=== PATIENT | female | born 1970 | race Caucasian/White ===

== ENCOUNTER 2023-11-16 13:40 | Inpatient (IN) | payer MEDICAID ==
[~2023-11-16] VITALS: Ht 157.5 cm; Wt 55.8 kg
[~2023-11-16 13:40] MED LIST: BUSP5TAB20 PO
[2023-11-16] MEDS ORDERED: ChlorproMAZINE HCL 50 MG TABLET PO PRN (16:15)
[2023-11-16] MEDS ORDERED: DiphenhydrAMINE HCL 25 MG CAPSULE PO PRN (16:15)
[2023-11-16] MEDS ORDERED: MELATONIN 5 MG TABLET PO PRN (16:15)
[2023-11-16 16:41] VITALS: BP 101/81; PULSE 80; RESP 18
[2023-11-16 17:07] LABS: GLUCOMETER DEV NAME(LOC) POC.BV; POC SARS-COV2 AG, FIA NEGATIVE (NEGATIVE)
[2023-11-16 18:15] VITALS: BP 123/85; PULSE 75; RESP 18; TEMP 97.5; O2SAT 98
[2023-11-16] MEDS ORDERED: PNEUMOCOCCAL VACCINE POLYVALENT 0.5 ML SYRINGE [PPSV23] IM. ONE (18:30)
[2023-11-16] MEDS ORDERED: INFLUENZA VIRUS VACCINE QVS 2023-24 (6MO+)/PF 60 MCG/0.5 ML SYRINGE IM. ONE (18:30)
[2023-11-16] MEDS: BENZOCAINE/MENTHOL LOZENGE PO PRN (19:36)
[2023-11-16] MEDS: ALBUTEROL SULFATE HFA 90 MCG/PUFF 8 GM INHALER IH PRN (20:17)
[2023-11-16] MEDS: GABAPENTIN 100 MG CAPSULE PO SCH (21:14)
[2023-11-16] MEDS: FluvoxaMINE MALEATE 50 MG TABLET PO SCH (21:14)
[2023-11-16 21:34] VITALS: BP 119/74; PULSE 18; RESP 18; TEMP 97.6; O2SAT 97
[2023-11-16] MEDS: BusPIRone HCL 10 MG TABLET PO SCH (22:07)
[2023-11-16] MEDS: ZOLPIDEM TARTRATE 5 MG TABLET PO PRN (22:40)
[2023-11-17] MEDS: LORazepam 0.5 MG TABLET PO PRN ×2 (01:09→12:53)
[2023-11-17 02:05] VITALS: BP 118/84; PULSE 77; RESP 16; TEMP 97.6; O2SAT 98
[2023-11-17] MEDS: ALBUTEROL SULFATE HFA 90 MCG/PUFF 8 GM INHALER IH PRN ×4 (04:00→22:59)
[2023-11-17 08:48] VITALS: BP 111/72; PULSE 87; RESP 17; TEMP 97; O2SAT 98
[2023-11-17] MEDS: GABAPENTIN 100 MG CAPSULE PO SCH ×3 (09:54→16:27)
[2023-11-17] MEDS: BusPIRone HCL 10 MG TABLET PO SCH ×3 (09:54→16:27)
[2023-11-17] MEDS: AMOX TR/POT CLAV 875 MG/125 MG TABLET PO SCH (19:34)
[2023-11-17] MEDS: PANTOPRAZOLE SODIUM 40 MG DR TABLET PO SCH (20:01)
[2023-11-17] MEDS: FluvoxaMINE MALEATE 50 MG TABLET PO SCH (20:12)
[2023-11-17 20:42] VITALS: BP 95/56; PULSE 87; RESP 20; TEMP 98.6; O2SAT 100
[2023-11-17] MEDS: BENZOCAINE/MENTHOL LOZENGE PO PRN (23:12)
[2023-11-18] MEDS: LORazepam 0.5 MG TABLET PO PRN ×3 (01:46→23:49)
[2023-11-18 08:10] LABS: BASOPHILS % (AUTO) 1.1 % (0.0-2.0); EOSINOPHILS % (AUTO) 4.2 % (1.0-6.0); HEMATOCRIT 41.5 % (36-46); HEMOGLOBIN 14.2 g/dL (12.0-16.0); LYMPHOCYTES # (AUTO) 1.4 K/uL (1.0-4.8); LYMPHOCYTES % (AUTO) 24.3 % (22.0-44.0); MEAN CORPUSCULAR HEMOGLOBIN 30.9 pg (26.0-34.0); MEAN CORPUSCULAR HGB CONC 34.2 G/dL (31.0-37.0); MEAN CORPUSCULAR VOLUME 90 fL (80-100); MONOCYTES # (AUTO) 0.5 K/uL (0.1-1.0); MONOCYTES % (AUTO) 9.4 % (2.0-9.0); NEUTROPHILS # (AUTO) 3.5 K/uL (1.8-7.7); PLATELET COUNT (AUTO) 316 K/uL (150-450); RED CELL DISTRIBUTION WIDTH 14.2 % (11.5-14.5); WHITE BLOOD COUNT (AUTO) 5.7 K/uL (4.5-11.0)
[2023-11-18 08:17] LABS: HEMOGLOBIN A1C 5.5 % (3.8-5.6)
[2023-11-18 08:39] LABS: ANION GAP 6 mmol/L (8-16); CALCIUM, TOTAL 9.3 mg/dL (8.8-10.5); CARBON DIOXIDE 33 mmol/L (22-29); CHLORIDE 101 mmol/L (98-107); CHOL/HDL RATIO 2.3 (3.9-5.7); CHOLESTEROL 164 mg/dL (131-200); FREE T4 (FREE THYROXINE) 1.14 ng/dL (0.76-1.46); GLOMERULAR FILTR. RATE CALC > 60 mL/min (>60); GLUCOSE,RANDOM 80 mg/dL (70-110); HDL CHOLESTEROL 72 mg/dL (40-60); LDL CHOL (CALC.) 74 mg/dL (0-130); SODIUM SERUM 140 mmol/L (136-145); THYROID STIMULATING HORMONE 0.88 uIU/mL (0.36-3.74); TRIGLYCERIDES 92 mg/dL (15-150); UREA NITROGEN, BLOOD 13 mg/dL (7-18)
[2023-11-18] MEDS: PANTOPRAZOLE SODIUM 40 MG DR TABLET PO SCH (09:29)
[2023-11-18] MEDS: ARIPiprazole 5 MG TABLET PO SCH (09:29)
[2023-11-18] MEDS: AMOX TR/POT CLAV 875 MG/125 MG TABLET PO SCH ×2 (09:29→16:54)
[2023-11-18] MEDS: BusPIRone HCL 10 MG TABLET PO SCH ×3 (09:30→16:54)
[2023-11-18 09:42] VITALS: BP 113/53; PULSE 65; RESP 16; TEMP 97.9; O2SAT 96
[2023-11-18] MEDS: BENZOCAINE/MENTHOL LOZENGE PO PRN ×2 (11:22→18:05)
[2023-11-18] MEDS: ALBUTEROL SULFATE HFA 90 MCG/PUFF 8 GM INHALER IH PRN ×2 (12:46→19:19)
[2023-11-18 15:04] VITALS: BP 106/80
[2023-11-18 20:16] VITALS: BP 113/77; PULSE 92; RESP 17; TEMP 97.8; O2SAT 97
[2023-11-18] MEDS: FluvoxaMINE MALEATE 50 MG TABLET PO SCH (20:18)
[2023-11-19] MEDS: ALBUTEROL SULFATE HFA 90 MCG/PUFF 8 GM INHALER IH PRN ×3 (03:21→19:57)
[2023-11-19] MEDS: AMOX TR/POT CLAV 875 MG/125 MG TABLET PO SCH ×2 (08:31→16:17)
[2023-11-19] MEDS: PANTOPRAZOLE SODIUM 40 MG DR TABLET PO SCH (08:31)
[2023-11-19] MEDS: ARIPiprazole 5 MG TABLET PO SCH (08:31)
[2023-11-19] MEDS: BusPIRone HCL 10 MG TABLET PO SCH ×3 (08:31→16:17)
[2023-11-19 09:22] VITALS: BP 106/79; PULSE 86; RESP 19; TEMP 98.6; O2SAT 96
[2023-11-19] MEDS: BENZOCAINE/MENTHOL LOZENGE PO PRN ×2 (09:56→17:28)
[2023-11-19 10:07] LABS: HEPATITIS A ANTIBODY IGM Negative (Negative); HEPATITIS B CORE IGM Negative (Negative); HEPATITIS C AB (EIA) Non Reactive (Non Reactive)
[2023-11-19] MEDS: FluvoxaMINE MALEATE 50 MG TABLET PO SCH (20:00)
[2023-11-19 20:19] VITALS: BP 109/65; PULSE 77; RESP 18; TEMP 98.1; O2SAT 97
[2023-11-19] MEDS: LORazepam 0.5 MG TABLET PO PRN (20:58)
[2023-11-19] MEDS: ZOLPIDEM TARTRATE 5 MG TABLET PO PRN (23:13)
[2023-11-20] MEDS: BusPIRone HCL 10 MG TABLET PO SCH ×3 (08:43→16:37)
[2023-11-20] MEDS: ARIPiprazole 5 MG TABLET PO SCH (08:43)
[2023-11-20] MEDS: PANTOPRAZOLE SODIUM 40 MG DR TABLET PO SCH (08:43)
[2023-11-20] MEDS: AMOX TR/POT CLAV 875 MG/125 MG TABLET PO SCH ×2 (08:44→16:37)
[2023-11-20 09:13] VITALS: BP 106/63; PULSE 77; RESP 16; TEMP 98; O2SAT 97
[2023-11-20] MEDS: ALBUTEROL SULFATE HFA 90 MCG/PUFF 8 GM INHALER IH PRN ×2 (10:32→20:10)
[2023-11-20] MEDS: BENZOCAINE/MENTHOL LOZENGE PO PRN ×2 (13:13→23:27)
[2023-11-20] MEDS: LORazepam 0.5 MG TABLET PO PRN ×2 (15:54→23:27)
[2023-11-20 20:00] VITALS: BP 106/64; PULSE 80; RESP 18; TEMP 97.2; O2SAT 96
[2023-11-20] MEDS: FluvoxaMINE MALEATE 50 MG TABLET PO SCH (20:10)
[2023-11-21] MEDS: ZOLPIDEM TARTRATE 5 MG TABLET PO PRN (03:09)
[2023-11-21 08:22] VITALS: BP 111/66; PULSE 78; RESP 18; TEMP 97.6; O2SAT 99
[2023-11-21] MEDS: ARIPiprazole 5 MG TABLET PO SCH (08:46)
[2023-11-21] MEDS: BusPIRone HCL 10 MG TABLET PO SCH ×3 (08:46→16:41)
[2023-11-21] MEDS: AMOX TR/POT CLAV 875 MG/125 MG TABLET PO SCH ×2 (08:46→16:41)
[2023-11-21] MEDS: PANTOPRAZOLE SODIUM 40 MG DR TABLET PO SCH (08:46)
[2023-11-21] MEDS: ALBUTEROL SULFATE HFA 90 MCG/PUFF 8 GM INHALER IH PRN ×2 (12:27→22:11)
[2023-11-21] MEDS: BENZOCAINE/MENTHOL LOZENGE PO PRN ×2 (14:21→20:50)
[2023-11-21] MEDS: FluvoxaMINE MALEATE 50 MG TABLET PO SCH (20:47)
[2023-11-21] MEDS: LORazepam 0.5 MG TABLET PO PRN (21:47)
[2023-11-21 21:55] VITALS: BP 106/67; PULSE 70; RESP 18; TEMP 97.9; O2SAT 97
[2023-11-22] MEDS: ZOLPIDEM TARTRATE 5 MG TABLET PO PRN ×2 (00:55→20:46)
[2023-11-22 01:04] VITALS: BP 111/77; PULSE 77; RESP 18; TEMP 97.3; O2SAT 100
[2023-11-22] MEDS: AMOX TR/POT CLAV 875 MG/125 MG TABLET PO SCH ×2 (09:23→16:15)
[2023-11-22] MEDS: PANTOPRAZOLE SODIUM 40 MG DR TABLET PO SCH (09:24)
[2023-11-22] MEDS: BusPIRone HCL 10 MG TABLET PO SCH ×3 (09:24→16:15)
[2023-11-22] MEDS: ARIPiprazole 5 MG TABLET PO SCH (09:24)
[2023-11-22 09:39] VITALS: BP 98/60; PULSE 60; RESP 16; TEMP 97; O2SAT 95
[2023-11-22] MEDS: BENZOCAINE/MENTHOL LOZENGE PO PRN ×3 (09:39→23:37)
[2023-11-22] MEDS: ALBUTEROL SULFATE HFA 90 MCG/PUFF 8 GM INHALER IH PRN ×2 (10:18→17:57)
[2023-11-22] MEDS: FluvoxaMINE MALEATE 50 MG TABLET PO SCH (20:01)
[2023-11-22 20:30] VITALS: BP 126/73; PULSE 81; RESP 18; TEMP 97.3; O2SAT 98
[2023-11-23] MEDS: ALBUTEROL SULFATE HFA 90 MCG/PUFF 8 GM INHALER IH PRN ×3 (01:05→18:40)
[2023-11-23] MEDS: ARIPiprazole 5 MG TABLET PO SCH (08:28)
[2023-11-23] MEDS: BusPIRone HCL 10 MG TABLET PO SCH ×3 (08:28→17:04)
[2023-11-23] MEDS: AMOX TR/POT CLAV 875 MG/125 MG TABLET PO SCH ×2 (08:29→17:04)
[2023-11-23] MEDS: PANTOPRAZOLE SODIUM 40 MG DR TABLET PO SCH (08:29)
[2023-11-23 08:36] VITALS: BP 113/60; PULSE 73; RESP 17; TEMP 97.6; O2SAT 97
[2023-11-23] MEDS: BENZOCAINE/MENTHOL LOZENGE PO PRN ×3 (09:32→22:26)
[2023-11-23 20:28] VITALS: BP 118/78; PULSE 78; RESP 18; TEMP 97.8
[2023-11-23] MEDS: FluvoxaMINE MALEATE 50 MG TABLET PO SCH (20:36)
[2023-11-24 00:26] VITALS: BP 129/69; PULSE 92; RESP 17; TEMP 98; O2SAT 97
[2023-11-24] MEDS: AMOX TR/POT CLAV 875 MG/125 MG TABLET PO SCH (08:08)
[2023-11-24] MEDS: PANTOPRAZOLE SODIUM 40 MG DR TABLET PO SCH (08:08)
[2023-11-24] MEDS: BusPIRone HCL 10 MG TABLET PO SCH ×2 (08:08→13:14)
[2023-11-24 08:23] VITALS: BP 134/89; PULSE 93; RESP 19; TEMP 97.7; O2SAT 96
[2023-11-24] MEDS: BENZOCAINE/MENTHOL LOZENGE PO PRN (08:58)
[2023-11-24] MEDS ORDERED: CARBAMIDE PEROXIDE 6.5% 15 ML OTIC SOLUTION AD SCH ×2 (09:00→21:00)
[2023-11-24] MEDS ORDERED: ARIPiprazole 10 MG TABLET PO SCH (09:00)
[2023-11-24] MEDS ORDERED: ARIP10TA38 PO (10:51)
[2023-11-24] MEDS ORDERED: FLUV50 PO (10:51)
[2023-11-24] MEDS ORDERED: BUSP10TA23 PO (10:51)
[2023-11-24] MEDS ORDERED: MELA5TAB40 PO (10:51)
[2023-11-24] MEDS ORDERED: FluvoxaMINE MALEATE 50 MG TABLET PO SCH (21:00)
== END 2023-11-24 13:55 | disposition home or self-care (01) | DRG 753 ==
LOC: B2S 17:20
PROVIDERS: ADMIT Psychiatry & Neurology Psychiatry; ATTEND Psychiatry & Neurology Psychiatry
PROC: GZHZZZZ Group Psychotherapy (ICD-10-PCS; principal; 2023-11-16)
PROC: GZ51ZZZ Individual Psychotherapy, Behavioral (ICD-10-PCS; 2023-11-16)
DX: F31.9 Bipolar disorder, unspecified (principal); R45.851 Suicidal ideations; F25.9 Schizoaffective disorder, unspecified; F41.0 Panic disorder [episodic paroxysmal anxiety]; G47.09 Other insomnia; J45.909 Unspecified asthma, uncomplicated; F84.0 Autistic disorder; Z20.822 Contact with and (suspected) exposure to COVID-19; J02.9 Acute pharyngitis, unspecified; Z60.8 Other problems related to social environment; F70 Mild intellectual disabilities; Z59.9 Problem related to housing and economic circumstances, unspecified; Z63.9 Problem related to primary support group, unspecified; Z65.3 Problems related to other legal circumstances; Z88.1 Allergy status to other antibiotic agents
CPT/HCPCS: 80048; 80061; 80074; 83036; 84439; 84443; 85025; J3535; Q9967

== ENCOUNTER 2023-11-24 19:26 | Inpatient (IN) | payer MEDICAID, OTHER ==
[~2023-11-24] VITALS: Ht 157.5 cm; Wt 56.7 kg
[~2023-11-24 19:26] MED LIST changes: +ARIP10TA38 PO; +BUSP10TA23 PO; +FLUV50 PO; +MELA5TAB40 PO
[2023-11-24 22:11] LABS: BASOPHILS % (AUTO) 1.1 % (0.0-2.0); EOSINOPHILS % (AUTO) 2.9 % (1.0-6.0); HEMATOCRIT 41.2 % (36-46); HEMOGLOBIN 13.5 g/dL (12.0-16.0); LYMPHOCYTES # (AUTO) 1.7 K/uL (1.0-4.8); LYMPHOCYTES % (AUTO) 21.7 % (22.0-44.0); MEAN CORPUSCULAR HGB CONC 32.7 G/dL (31.0-37.0); MEAN CORPUSCULAR VOLUME 92 fL (80-100); MONOCYTES # (AUTO) 0.8 K/uL (0.1-1.0); MONOCYTES % (AUTO) 9.9 % (2.0-9.0); NEUTROPHILS # (AUTO) 5.2 K/uL (1.8-7.7); NEUTROPHILS % (AUTO) 64.4 % (40.0-70.0); PLATELET COUNT (AUTO) 296 K/uL (150-450); RED BLOOD CELL COUNT(AUTO) 4.48 MIL/uL (4.00-5.20); RED CELL DISTRIBUTION WIDTH 14.2 % (11.5-14.5)
[2023-11-24 22:13] LABS: ALCOHOL, URINE DRUG SCREEN NEGATIVE (NEGATIVE); AMPHET/METH SCREEN,URINE NEGATIVE (NEGATIVE); BARBITURATE SCREEN, URINE NEGATIVE (NEGATIVE); BENZODIAZEPINES SCREEN,URINE NEGATIVE (NEGATIVE); CANNABINOID SCREEN,URINE NEGATIVE (NEGATIVE); COCAINE SCREEN,URINE NEGATIVE (NEGATIVE); METHADONE SCREEN, URINE NEGATIVE (NEGATIVE); OPIATE SCREEN,URINE NEGATIVE (NEGATIVE); PHENCYCLIDINE SCREEN,URINE NEGATIVE (NEGATIVE)
[2023-11-24 22:17] LABS: ANION GAP 7 mmol/L (8-16); CALCIUM, TOTAL 9.8 mg/dL (8.8-10.5); CARBON DIOXIDE 32 mmol/L (22-29); CHLORIDE 102 mmol/L (98-107); CREATININE 0.88 mg/dL (0.60-1.30); GLOMERULAR FILTR. RATE CALC > 60 mL/min (>60); GLUCOSE,RANDOM 110 mg/dL (70-110); POTASSIUM 4.1 mmol/L (3.5-5.1); SODIUM SERUM 141 mmol/L (136-145); UREA NITROGEN, BLOOD 15 mg/dL (7-18)
[2023-11-24 22:23] LABS: ALANINE AMINOTRANSFERASE 33 U/L (12-78); ALBUMIN 4.1 g/dL (3.4-5.0); ALKALINE PHOSPHATASE 77 U/L (46-116); ASPARTATE AMINOTRANSFERASE 18 U/L (15-37); BILIRUBIN,TOTAL 0.5 mg/dL (0.1-1.0); TOTAL PROTEIN, SERUM 6.6 g/dL (6.4-8.2)
[2023-11-24 22:37] LABS: ALCOHOL, BLOOD (SERUM) < 3 mg/dL (0-10)
[2023-11-25] MEDS: LORazepam 2 MG TABLET PO ONE (02:27)
[2023-11-25] MEDS: DiphenhydrAMINE HCL 50 MG CAPSULE PO ONE (02:27)
[2023-11-25 03:09] LABS: COVID AG,FIA SOURCE NASAL SWAB
[2023-11-25] MEDS ORDERED: HALOPERIDOL 5 MG TABLET PO PRN (03:15)
[2023-11-25 03:26] LABS: SARS-COV2 (COVID) ANTIGEN,FIA Negative (Negative)
[2023-11-25 04:22] VITALS: BP 145/80; PULSE 77; RESP 18; TEMP 97.7; O2SAT 100
[2023-11-25 04:33] VITALS: BP 145/80; PULSE 77; RESP 18; TEMP 97.7
[2023-11-25] MEDS ORDERED: OLANZapine 5 MG RAPDIS TABLET PO PRN (10:30)
[2023-11-25] MEDS ORDERED: GuaiFENesin/D-METHORPHAN [SUGAR-FREE] 200-20MG/10 ML SYRUP UDCUP PO PRN (10:30)
[2023-11-25] MEDS ORDERED: PROMETHAZINE HCL 25 MG TABLET PO PRN (10:30)
[2023-11-25] MEDS ORDERED: TUBERCULIN, PURIFIED PROTEIN DERIVATIVE 5 TU/0.1 ML SYRINGE ID ONE (10:30)
[2023-11-25] MEDS ORDERED: LOPERAMIDE HCL 2 MG CAPSULE PO PRN (10:30)
[2023-11-25] MEDS ORDERED: MAG HYDROX/ALUMINUM HYD/SIMETH ES 30 ML SUSPENSION UDCUP PO PRN (10:30)
[2023-11-25] MEDS ORDERED: HydrOXYzine PAMOATE 50 MG CAPSULE PO PRN (10:30)
[2023-11-25] MEDS ORDERED: MAGNESIUM HYDROXIDE SUSPENSION 30 ML UDCUP PO PRN (10:30)
[2023-11-25 11:39] VITALS: BP 94/59; PULSE 66; RESP 18; TEMP 97.8; O2SAT 99
[2023-11-25] MEDS: BusPIRone HCL 10 MG TABLET PO SCH (12:14)
[2023-11-25] MEDS: THIAMINE 100 MG TABLET PO SCH (16:18)
[2023-11-25] MEDS: QUEtiapine FUMARATE 25 MG TABLET PO SCH ×2 (16:18→21:17)
[2023-11-25] MEDS: LORazepam 2 MG TABLET PO PRN (19:50)
[2023-11-25] MEDS ORDERED: ARIPiprazole 10 MG TABLET PO SCH (21:00)
[2023-11-25] MEDS ORDERED: FluvoxaMINE MALEATE 50 MG TABLET PO SCH (21:00)
[2023-11-25] MEDS: MELATONIN 5 MG TABLET PO SCH (21:17)
[2023-11-25 22:36] VITALS: BP 127/80; PULSE 100; RESP 18; TEMP 96.8; O2SAT 100
[2023-11-26 08:16] LABS: FREE T4 (FREE THYROXINE) 1.11 ng/dL (0.76-1.46); T4 (THYROXINE) 8.4 mcg/dL (4.7-13.3)
[2023-11-26] MEDS: MULTIVITAMINS WITH MINERALS, THERAPEUTIC TABLET PO SCH (08:35)
[2023-11-26] MEDS: OMEGA-3/DHA/EPA/FISH OIL 1,000 MG CAPSULE PO SCH (08:35)
[2023-11-26] MEDS: PARoxetine HCL 20 MG TABLET PO SCH (08:35)
[2023-11-26] MEDS: FOLIC ACID 1 MG TABLET PO SCH (08:35)
[2023-11-26 09:03] VITALS: BP 102/67; PULSE 68; RESP 16; TEMP 97.3; O2SAT 96
[2023-11-26] MEDS: BusPIRone HCL 10 MG TABLET PO SCH (16:19)
[2023-11-26] MEDS: ALBUTEROL SULFATE HFA 90 MCG/PUFF 8 GM INHALER IH PRN (18:06)
[2023-11-26 21:43] VITALS: BP 114/61; PULSE 60; RESP 18; TEMP 97.8; O2SAT 96
[2023-11-27 10:32] VITALS: BP 109/55; PULSE 97; RESP 20; TEMP 98.2; O2SAT 99
[2023-11-27 22:19] VITALS: BP 90/51; PULSE 66; RESP 18; TEMP 96.8; O2SAT 96
[2023-11-28] MEDS: PARoxetine HCL 10 MG TABLET PO SCH (08:08)
[2023-11-28 10:12] VITALS: BP 104/55; PULSE 77; RESP 17; TEMP 98.3; O2SAT 97
[2023-11-28 20:00] VITALS: BP 98/55; PULSE 96; RESP 18; TEMP 97; O2SAT 97
[2023-11-28] MEDS: ZOLPIDEM TARTRATE 10 MG TABLET PO PRN (21:55)
[2023-11-29 09:31] VITALS: BP 106/60; PULSE 91; RESP 18; TEMP 97.2; O2SAT 98
[2023-11-29 20:51] VITALS: BP 113/74; PULSE 81; RESP 20; TEMP 97.3; O2SAT 98
[2023-11-29 21:22] VITALS: BP 112/77; PULSE 79; RESP 18; TEMP 97; O2SAT 98
[2023-11-29] MEDS: ACETAMINOPHEN 325 MG TABLET PO PRN (21:25)
[2023-11-29 22:25] VITALS: RESP 18
[2023-11-29] MEDS: CIPROFLOXACIN HCL 0.2%/HYDROCORT 1% 10 ML OTIC SUSPENSION AD SCH (23:57)
[2023-11-30 08:20] VITALS: BP 103/91; PULSE 81; RESP 16; TEMP 97.7; O2SAT 98
[2023-11-30] MEDS ORDERED: PARO10TA71 PO (17:40)
[2023-11-30] MEDS ORDERED: MELA5TAB40 PO (17:40)
[2023-11-30] MEDS ORDERED: BUSP10TA23 PO (17:40)
[2023-11-30] MEDS ORDERED: QUET25TA36 PO ×2 (17:40)
[2023-11-30] MEDS ORDERED: OMEG-135 PO (17:40)
[2023-11-30] MEDS ORDERED: PARO-38 PO (21:17)
[2023-11-30 21:54] VITALS: RESP 18
[2023-12-01] MEDS: PARoxetine HCL 20 MG TABLET PO SCH (08:53)
[2023-12-01] MEDS ORDERED: CIPOTIC AD (13:56)
[2023-12-02] MEDS ORDERED: HYDR50CA7 PO (20:58)
== END 2023-12-01 15:19 | disposition home or self-care (01) | DRG 753 ==
LOC: EMS 19:30 → 3EI 11-25 03:00
PROVIDERS: ADMIT Psychiatry & Neurology Psychiatry; ATTEND Psychiatry & Neurology Psychiatry
PROC: GZHZZZZ Group Psychotherapy (ICD-10-PCS; principal; 2023-11-25)
PROC: GZ51ZZZ Individual Psychotherapy, Behavioral (ICD-10-PCS; 2023-11-25)
DX: F31.5 Bipolar disorder, current episode depressed, severe, with psychotic features (principal); R62.7 Adult failure to thrive; F70 Mild intellectual disabilities; F41.9 Anxiety disorder, unspecified; F84.0 Autistic disorder; Z20.822 Contact with and (suspected) exposure to COVID-19; J45.909 Unspecified asthma, uncomplicated; Z88.1 Allergy status to other antibiotic agents; Z91.148 Patient's other noncompliance with medication regimen for other reason; Z79.899 Other long term (current) drug therapy
CPT/HCPCS: 80053; 80307; 84436; 84439; 85025; 87081; 92610; 99285; G0480; J3535; Q9967

== ENCOUNTER 2023-12-02 19:06 | Emergency (ER) | payer MEDICAID, OTHER ==
[~2023-12-02] VITALS: Ht 157.5 cm; Wt 55.0 kg
[~2023-12-02 19:06] MED LIST changes: -ARIP10TA38 PO; -BUSP5TAB20 PO; +CIPOTIC AD; -FLUV50 PO; +OMEG-135 PO; +PARO-38 PO; +QUET25TA36 PO
[2023-12-02 19:13] VITALS: BP 108/71; PULSE 101; RESP 18; TEMP 98
[2023-12-02] MEDS ORDERED: HYDR50CA7 PO (20:58)
[2023-12-02] MEDS: HydrOXYzine PAMOATE 50 MG CAPSULE PO ONE (20:58)
== END 2023-12-02 21:13 | disposition home or self-care (01) ==
LOC: EMS 19:08
DX: F41.9 Anxiety disorder, unspecified (principal); J45.909 Unspecified asthma, uncomplicated; Z88.1 Allergy status to other antibiotic agents
CPT/HCPCS: 99283